=== PATIENT | male | born 1965 | race Caucasian/White ===

== ENCOUNTER 2019-01-19 21:03 | Observation (INO) | payer OTHER, MEDICAID ==
[2019-01-19] MEDS: NITROGLYCERIN (SL) 0.4 MG TAB SL (21:14)
[2019-01-19] MEDS: NITROGLYCERIN 2% 1 GM OINT PKT TD (21:15)
[2019-01-19 21:16] LABS: ADD MAN DIFF? NO
[2019-01-19 21:20] LABS: WHITE BLOOD COUNT 6.9 10^3/ul (4.8-10.8)
[2019-01-19 21:20] LABS: BASOPHILS % 0.6 % (0.0-2.0); EOSINOPHILS # 0.1 10^3/ul (0.0-0.5); EOSINOPHILS % 1.5 % (0.0-7.0); HEMATOCRIT 41.6 % (42.0-52.0); HEMOGLOBIN 13.7 g/dl (14.0-18.0); LYMPHOCYTES # 1.7 10^3/ul (0.8-2.9); LYMPHOCYTES % 24.4 % (15.0-51.0); MEAN CORPUSCULAR HEMOGLOBIN 29.5 pg (29.0-33.0); MEAN CORPUSCULAR HGB CONC 32.9 g/dl (32.0-37.0); MEAN CORPUSCULAR VOLUME 89.7 fl (82.0-101.0); MEAN PLATELET VOLUME 9.9 fl (7.4-10.4); MONOCYTE # 0.7 10^3/ul (0.3-0.9); MONOCYTES % 9.6 % (0.0-11.0); NEUTROPHIL # 4.4 10^3/ul (1.6-7.5); NEUTROPHILS % 63.8 % (39.0-77.0); PLATELET COUNT 262 10^3/UL (140-415); RED BLOOD COUNT 4.64 10^6/ul (4.70-6.10); RED CELL DISTRIBUTION WIDTH 12.5 % (11.5-14.5)
[2019-01-19] MEDS: ONDANSETRON 4 MG INJ IV (21:20)
[2019-01-19] MEDS: morphine 4 MG/ML VIAL IV (21:23)
[2019-01-19 21:39] LABS: ANION GAP 9 (5-13); BLOOD UREA NITROGEN 11 mg/dl (7-20); CALCIUM 8.9 mg/dl (8.4-10.2); CARBON DIOXIDE 26 mmol/L (21-31); CHLORIDE 108 mmol/L (97-110); CREATININE 0.89 mg/dl (0.61-1.24); Estimated GFR > 60 mL/min (>60); GLUCOSE 99 mg/dl (70-220); POTASSIUM 3.5 mmol/L (3.5-5.1); SODIUM 143 mmol/L (135-144)
[2019-01-19 21:51] LABS: TROPONIN-I < 0.012 ng/ml (0.000-0.120)
[2019-01-19] MEDS: HYDROmorphONE 2 MG/ML SYG IV (22:01)
[2019-01-19] MEDS: METOPROLOL 50 MG TAB PO (23:00)
[2019-01-19] MEDS ORDERED: ZOLPIDEM 5 MG TAB PO (23:00)
[2019-01-20] MEDS: ACETAMINOPHEN 325 MG TAB PO (01:14)
[2019-01-20] MEDS: ONDANSETRON 4 MG INJ IV (02:38)
[2019-01-20] MEDS: morphine 2 MG INJ IV ×4 (02:39→08:42)
[2019-01-20 06:09] LABS: CREATINE KINASE 74 IU/L (23-200)
[2019-01-20 06:19] LABS: CK INDEX 0.5; CK-MB 0.37 ng/ml (0.0-2.4); TROPONIN-I < 0.012 ng/ml (0.000-0.120)
[2019-01-20] MEDS: METOPROLOL 25 MG TAB PO (10:28)
[2019-01-20] MEDS: ASPIRIN (EC) 81 MG TAB PO (10:29)
== END 2019-01-20 10:55 | disposition home or self-care (01) ==
LOC: E/R 01-20 11:29 → TEL 22:48 → E/R 21:03
DX: R07.89 Other chest pain (principal); I25.10 Atherosclerotic heart disease of native coronary artery without angina pectoris; Z95.5 Presence of coronary angioplasty implant and graft; I10 Essential (primary) hypertension; F41.9 Anxiety disorder, unspecified; I25.2 Old myocardial infarction; F17.290 Nicotine dependence, other tobacco product, uncomplicated; Z79.82 Long term (current) use of aspirin; Z79.02 Long term (current) use of antithrombotics/antiplatelets
CPT/HCPCS: 36415; 71045; 80048; 82550; 82553; 84484; 85025; 93005; 96374; 96375; 99285-25; G0378